=== PATIENT | female | born 1965 | race Caucasian/White ===

== ENCOUNTER → 2016-05-01 | Outpatient (CLI) | payer BC ==
[~2016-05-01] MED LIST: AMITIZA8 MCG; CARAFATE1 G PO; DEXILANT60 MG PO; KEFLEX500 MG PO; NO MEDICATIONS; OMEPRAZOLE40 M1 PO; PREDNISONE10 MG PO; PROTONIX PO; SUPER B COMPLE150 MG PO; VICODIN 5/1 TAB 5/50 PO; [UNRECOGNIZED DRUG - OTHER]
--- NOTE | ~2016-05-01 | CR61 ---
[facility] A Service of [facility] RADIOLOGY TEXT RESULTS PATIENT: ROGE ALEXANDRE LOCATION: [facility] : [birth year] UNIT #: [id number] AGE: [address]: Holley Miller MD SEX: F ORDER DR: [id number] [id number] [facility]. [place], [place] [address] [id number] O MR#: [id number] Acc #: [id number] NAME: ROGE ALEXANDRE : 1965 SEX: F STUDY DATE/TIME: 05/01/2016 11:54 UNIT: [facility] ROOM: STUDY DESCRIPTION: CR Cervical Spine Min 5 Views Attending Physician: Holley Miller M.D. Referring Physician: Holley Miller M.D. Ordering Physician: Holley Miller M.D. Primary Care Physician: Holley Miller M.D. MEDICAL IMAGING REPORT This report is preliminary unless electronic signature is present EXAM C-spine, 5 views. DATE OF EXAM 05/01/2016 HISTORY Neck pain. Anterior and posterior neck pain for 2 weeks. No known injury. FINDINGS AP, lateral and open mouth odontoid views submitted as well as bilateral foraminal obliques. Examination demonstrates loss of the normal cervical lordosis within the mid cervical spine. There is C5-6 degenerative disc changes with disc space narrowing, sclerosis and anterior and posterior hypertrophic change. Facet joints unremarkable. Mild arthritic change of atlantoaxial joint. Prevertebral soft tissues appear normal. IMPRESSION C5-6 degenerative disc disease as well as arthritic changes of atlantoaxial joint. Dictated by... Brijesh Mena M.D. THIS IS AN ELECTRONICALLY VERIFIED REPORT Brijesh Mena M.D. at 05/02/2016 8:09 PM Jessica TD: 05/01/2016 23:45 JOB #: [id number] MEDICAL IMAGING REPORT [facility] A Service of [facility] RADIOLOGY TEXT RESULTS PATIENT: ROGE ALEXANDRE LOCATION: [facility] #: [id number] : [birth year] UNIT #: [id number] AGE: [address]: Holley Miller MD SEX: F ORDER DR: Page 1 of 1 COPY
== END | disposition home or self-care (01) ==
LOC: CRAD 11:36
DX: M54.2 Cervicalgia (principal); M50.322 Other cervical disc degeneration at C5-C6 level; M47.812 Spondylosis without myelopathy or radiculopathy, cervical region
CPT/HCPCS: 72050

== ENCOUNTER → 2016-05-29 | Day surgery (SDC) | payer BC ==
--- NOTE | ~2016-05-29 | HP ---
Unit #: [id number] #: [id number] Patient: ROGE ALEXANDRE [id number] [address] [place], [place] [address] [id number] O MR#: [id number] NAME: ROGE ALEXANDRE ROOM: Age: 51 Sex: F Admission Date: 05/29/2016 : 1965 Attending Physician: Desmond Rosado M.D. Primary Care Physician: Holley Miller M.D. HISTORY AND PHYSICAL HISTORY OF PRESENT ILLNESS Ms. Alexandre is a 51-year-old female who has been having some persistent nausea and epigastric discomfort. She has had a previous cholecystectomy and has recovered uneventfully from that but continues to complain of epigastric pain and nausea. She denies any hematemesis, hematochezia, melena. She has not had any weight loss. She also has had some problems with constipation and is due for her initial surveillance colonoscopy for colorectal cancer screening. PAST MEDICAL HISTORY Cholecystectomy in 2012, LEEP procedure 1995, vaginal delivery x3. SOCIAL HISTORY Nonsmoker, social alcohol drinker, . FAMILY HISTORY Noncontributory. ALLERGIES Aspirin. MEDICATIONS 1. Dexilant. 2. Amitiza. 3. Multivitamin. REVIEW OF SYSTEMS Otherwise, unremarkable. PHYSICAL EXAMINATION GENERAL APPEARANCE: Awake, alert, oriented. VITAL SIGNS: Height 5'6". Weight 160 lb. Vital signs within normal limits. HEENT: Unremarkable. CARDIAC: Regular rate and rhythm. LUNGS: Clear. ABDOMEN: Soft. EXTREMITIES: No edema. NEUROLOGIC: Grossly intact. SKIN: No skin rashes or lesions. ASSESSMENT AND PLAN 1. A 51-year-old female with persistent epigastric pain and nausea. She has been on Dexilant without relief of her symptoms. We plan on Unit #: [id number] #: [id number] Patient: ROGE ALEXANDRE doing an endoscopic evaluation to rule out underlying occult ulcer disease. 2. The patient turned 51 yesterday and is going to have a colonoscopy for colorectal cancer screening. She does have a history of constipation but has been responding to Amitiza. I discussed colonoscopy with the patient including risks, benefits, complications, bowel prep. She understands and agrees to proceed. Dictated by Desmond Rosado M.D. RS/andre TD: 05/29/2016 08:02 JOB #: [id number] HISTORY AND PHYSICAL Page 1 of 1 X Desmond Rosado MD HISTORY AND PHYSICAL
--- NOTE | ~2016-05-29 | OR ---
Unit #: [id number] #: [id number] Patient: ROGE ALEXANDRE [id number] [facility] [address] [facility]. [place], [place] [address] [id number] O MR#: [id number] NAME: ROGE ALEXANDRE ROOM: Date of Procedure: 05/29/2016 Admission Date: 05/29/2016 Surgeon: Desmond Rosado M.D. : 1965 Attending Physician: Desmond Rosado M.D. Primary Care Physician: Holley Miller M.D. OPERATIVE REPORT PREOPERATIVE DIAGNOSES Nausea and epigastric pain, colorectal cancer screening, history of constipation. POSTOPERATIVE DIAGNOSES Mild to moderate gastritis and sigmoid diverticulosis. PROCEDURE PERFORMED Esophagogastroduodenoscopy with biopsy x3 and colonoscopy to cecum. ANESTHESIA Monitored anesthesia. INDICATIONS FOR PROCEDURE A 51-year-old female with persistent nausea and epigastric pain. She does have a history of chronic constipation, but is due for her colorectal cancer screening. DESCRIPTION OF PROCEDURE The patient was admitted to [facility], positively identified, and transported to the endoscopy unit. After appropriate monitoring and positioning, a bite block was placed and she was sedated by the nurse manager legal. The endoscope was passed through the oral cavity into esophagus. Under direct vision, we passed through the esophagus. The GE junction was well demarcated at 40 cm from the incisors. There was no hiatal hernia, no esophagitis, and no Whitman mucosa. As I entered the stomach, we insufflated she had [id number] gastritis particularly in the antrum, but no ulcer disease. In retroflexing the scope above the incisura, no other findings in the upper fundus or cardia were noted. I easily passed through the pylorus down to the third portion of duodenum. Duodenum and duodenal bulb were normal. As we came back in a retrograde fashion, no other abnormalities were noted. Biopsies for JARED testing and pathology were taken from the antrum. As we reached the larynx, the larynx was visualized and it was normal. After completion of the upper scope, the patient was repositioned. On rectal examination, there was no local anorectal pathology and digital exam was normal. Colonoscope was passed through the anal verge throughout the extent of the colon to the cecum. The base of the cecum and the ileocecal valve were photodocumented. On careful antegrade and retrograde visualization, there were no polyps. She did have some mild to moderate sigmoid diverticulosis, but no evidence of diverticulitis. In the rectal vault, there was no internal hemorrhoidal disease. The patient tolerated the Unit #: [id number] #: [id number] Patient: SATTERLY,ROGE procedure well and was transported recovery in stable condition. Findings were discussed with her . At this time, we are going to recommend a high-fiber diet, continuation of her Amitiza and Dexilant. We will call with results of the biopsies. Dictated by... Treasure Calderón/sawyer TD: 05/29/2016 08:03 JOB #: [id number] OPERATIVE REPORT Page 1 of 1 X Desmond Rosado MD PROCEDURE OPERATIVE NOTE
== END | disposition home or self-care (01) ==
LOC: COPS 06:00
DX: K29.70 Gastritis, unspecified, without bleeding (principal); K57.30 Diverticulosis of large intestine without perforation or abscess without bleeding; Z90.49 Acquired absence of other specified parts of digestive tract; Z88.8 Allergy status to other drugs, medicaments and biological substances; Z79.899 Other long term (current) drug therapy
CPT/HCPCS: 87077; 88305; 88312; J2250